=== PATIENT | female | born 1980 | race Caucasian/White ===

== ENCOUNTER → 2023-08-13 08:13 | Outpatient (REF) | payer OTHER, SELFPAY | LOC: WDC 08:13 | PROVIDERS: ATTENDING PHYSICIAN Obstetrics & Gynecology | DX: Z12.31 Encounter for screening mammogram for malignant neoplasm of breast (principal) | CPT/HCPCS: 77063; 77067 ==

== ENCOUNTER 2024-08-24 12:45 | Emergency (ER) | payer OTHER, SELFPAY ==
[2024-08-24 12:50] VITALS: BP 128/98
--- NOTE | 2024-08-24 14:29 | ED.GENMED ---
History of Present Illness
General
Chief Complaint: Fall
Source: patient
Exam Limitations: none
Time Seen by Provider: 08/24/24 14:06
History of Present Illness
History of Present Illness:
44yo right hand dominant female with no significant past medical history presenting for evaluation after a fall about 3 hours ago. Patient was walking her dog when she lost her balance and fell forward onto her left outstretched hand. She also
struck the left side of her head on the concrete sidewalk. She denies any loss of consciousness. Patient is presenting with left wrist pain and a headache. She also has some abrasions to her right hand and left knee. Unknown last Tdap. Of note,
she had a L retinal detachment 2 months ago which was repaired. She is not having any visual disturbance currently.
Past History
Past History
ED Past Medical History: None
ED Past Surgical History: None
Patient has exhibited threatening behavior?: No
Social History
Living: with family
Phy Exam
General Physical Exam
General Presentation: well appearing
General age: appears stated age
General Skin: warm and dry
General Habitus: normal
General Mental: alert
ENT Exam
ENT Exam: other (Small L temporal hematoma and abrasions. No cervical spine tenderness with full ROM.)
Eye Exam
Eye Exam: PERRL
Pulmonary Exam
Pulmonary Exam: lungs clear, no respiratory distress, no rales, chest non tender, no crackles and no rhonchi
Gastrointestinal Exam
Gastrointestinal Exam: non tender, soft and non distended
Neurological Exam
Neurological Exam: alert
Marian Coma Scale
Eye Opening: Spontaneous
Verbal Response: Oriented
Motor Response: Obeys Commands
GCS Total Score: 15
Musculoskeletal Exam
Musculoskeletal Exam: other (L wrist: Swelling and tenderness noted to distal radius. Overlying skin intact. No deformity. ROM decreased 2/2 pain. 2+ radial pulse and sensation intact. )
Skin Exam
Skin Exam: normal color, warm/dry and other (Abrasions noted to L knee and R hand )
Psychiatric Exam
Psychiatric Exam: normal mood/affect
Course
Orders/Labs/Results
Orders:
Orders
08/24/24 14:28
CT Head W/o Iv Contrast Urgent
Comment:
Reason For Exam: head injury
Oxycodone/Acetaminophen [Percocet 5/325] 1 tablet PO NOW STA
Tetanus/Diphth/Acelpertussis [Adacel] 0.5 ml IM .ONCE ONE
CR Forearm - Left 2 View Urgent
Comment:
Reason For Exam: injury
CR Wrist - Left Min 3 Views Urgent
Comment:
Reason For Exam: injury
08/24/24 15:53
Splints/Slings/Crut- Treatment ONCE
Location: Left
Type of Splint: Sugar Ton
Vital Signs
Initial and Last Documented VS:
Initial Vital Signs
Temp Pulse Resp BP Pulse Ox
98 F 83 16 128/98 98
08/24/24 12:50 08/24/24 12:50 08/24/24 12:50 08/24/24 12:50 08/24/24 12:50
Last Documented Vital Signs
Temp Pulse Resp BP Pulse Ox
98 F 79 18 139/85 98
08/24/24 12:50 08/24/24 15:55 08/24/24 15:55 08/24/24 15:55 08/24/24 15:55
MDM/Problems Addressed
Differential Diagnosis Includes:
44yoF here after a fall while walking her dog. +Head strike, no LOC. C/o headache and L wrist pain. Also sustained multiple abrasions. VSS. She is awake, alert, with a GCS of 15. There is a left temporal hematoma noted. Left wrist tenderness and
swelling present without deformity. LUE is neurovascularly intact. Differential diagnosis includes but is not limited to: fracture, sprain, closed head injury, concussion, intracranial hemorrhage
Initial ED plan: Check CT head and L forearm/wrist x-rays. Percocet for pain. Update Tdap.
*Critical Care Note
Total Time (30-74mins, 75-104mins- exclusive of procedures): Not Applicable
Update Note
Update Note:
X-rays show a distal left radius fracture with mild displacement. CT head is negative. Patient was placed in a sugar-tong splint by nursing staff. Neurovascular status unchanged after splint placement. Supportive care discussed. She was advised
to follow-up with orthopedics for further management of her fracture. Patient discharged in stable condition and ambulated with a steady gait out of the ED.
ED Attending Note
-
Portions of this chart may have been created with voice recognition software.� Occasional wrong word or��sound alike� substitutions may have occurred due to the inherent limitations of voice recognition software.
Discharge Plan
Departure
Patient Disposition: Home (Routine Discharge)
Date of Disposition: 08/24/24
Time of Disposition: 16:17
Patient with high blood pressure during this ER visit?: No
Discharge Problem:
Closed fracture of distal end of left radius, Closed head injury, Multiple abrasions, Fall from slip, trip, or stumble
Instructions: Wrist Fracture
Referrals:
Rebekah Palma MD [Family Provider] -
Neal Maldonado MD [Active] -
Activity Restrictions/Additional Instructions:
Keep splint in place and do not get wet. Take Tylenol and ibuprofen as needed for pain.
Please call tomorrow to schedule a follow-up with orthopedics.
Interventions
Interventions:
*Risk Screen - Suicide Last Done: 08/24/24 12:52
*General Assessment Last Done: 08/24/24 15:54
*Neglect/Abuse Screening Last Done: 08/24/24 12:52
*ED- Fall Risk Assessment Last Done: 08/24/24 15:54
*ED COVID-19 Vaccine History Last Done: 08/24/24 15:54
*Nursing Disposition Last Done: 08/24/24 16:32
ED-Musculoskeletal Assessment Last Done: 08/24/24 15:55
ED- Neurological Assessment Last Done: 08/24/24 15:55
ED-Skin Assessment Last Done: 08/24/24 15:55
Discharge Date and Time
Discharge Date/Time: 08/24/24 16:33
Print Language: [id number]
[2024-08-24] MEDS: PERCOCET 5/325 1 TABLET PO (15:04)
[2024-08-24 15:53] VITALS: BMI 29.6
[2024-08-24 15:55] VITALS: BP 139/85
[2024-08-24] MEDS: ADACEL 0.5 ML IM (16:02)
== END 2024-08-24 16:33 | disposition home or self-care (01) ==
LOC: EMR 12:45
PROVIDERS: EMERGENCY PHYSICIAN Emergency Medicine; FAMILY PHYSICIAN Family Medicine
DX: S52.572A Other intraarticular fracture of lower end of left radius, initial encounter for closed fracture (principal); S00.83XA Contusion of other part of head, initial encounter; S60.511A Abrasion of right hand, initial encounter; S80.212A Abrasion, left knee, initial encounter; S00.81XA Abrasion of other part of head, initial encounter; W01.0XXA Fall on same level from slipping, tripping and stumbling without subsequent striking against object, initial encounter; Y93.K1 Activity, walking an animal; Z23 Encounter for immunization
CPT/HCPCS: 29125; 90471; 99284; 70450; 73090; 73110; 90715

== ENCOUNTER → 2024-09-20 11:51 | Outpatient (REF) | payer OTHER, SELFPAY | LOC: HWRAD 11:51 | PROVIDERS: ATTENDING PHYSICIAN Orthopaedic Surgery; FAMILY PHYSICIAN Family Medicine | DX: S63 Dislocation and sprain of joints and ligaments at wrist and hand level (principal); S52.562D Barton's fracture of left radius, subsequent encounter for closed fracture with routine healing | CPT/HCPCS: 73200 ==

== ENCOUNTER → 2024-10-05 18:23 | Outpatient (REF) | payer OTHER, SELFPAY | LOC: WDC 18:23 | PROVIDERS: ATTENDING PHYSICIAN Obstetrics & Gynecology; FAMILY PHYSICIAN Family Medicine | DX: Z12.31 Encounter for screening mammogram for malignant neoplasm of breast (principal) | CPT/HCPCS: 77063; 77067 ==